=== PATIENT | male | born 1955 | race Caucasian/White ===

== ENCOUNTER 2017-10-20 08:00 | Day surgery (SDC) | payer OTHER ==
[~2017-10-20 08:00] MED LIST: CIPROFLOXACIN 400 MG in D5W 200 ML IVPB; Metronidazole 500 MG in NS 100 ML IVPB
[2017-10-20] MEDS ORDERED: ON Q PUMP ON-Q-PUMP (11:30)
[2017-10-20] MEDS ORDERED: BUPIVACAINE 0.5% ON-Q-PUMP (11:30)
== END 2017-10-20 13:28 | disposition home or self-care (01) ==
LOC: REC 10:54 → SDS 08:00
DX: C20 Malignant neoplasm of rectum (principal); Z53.9 Procedure and treatment not carried out, unspecified reason
CPT/HCPCS: 86850; 86900; 86901

== ENCOUNTER 2017-12-15 12:53 | Inpatient (IN) | payer OTHER ==
[~2017-12-15 12:53] MED LIST changes: +ACETAMINOPHEN 1000 MG/100 ML IVPB; -CIPROFLOXACIN 400 MG in D5W 200 ML IVPB; +GLYCOPYRROLATE 0.4 MG INJ; -Metronidazole 500 MG in NS 100 ML IVPB; +NEOSTIGMINE 3 MG/3 ML SYRINGE; +ROCURONIUM 50 MG INJ
[2017-12-15] MEDS: CIPROFLOXACIN 400MG/D5W 200 ML IVPB (14:00)
[2017-12-15] MEDS: SOD CHLORIDE 0.9% 1,000 ML IV (14:00)
[2017-12-15] MEDS: metroNIDAZOLE 500 MG/NS (PMX) 100 ML IVPB (14:00)
[2017-12-15] MEDS: LACTATED RINGER'S 1,000 ML IV (14:00)
[2017-12-15] MEDS ORDERED: FENTAnyl 50 MCG/ML VIAL (15:25)
[2017-12-15] MEDS ORDERED: ROPIVACAINE 0.5 % 30 ML VIAL (15:32)
[2017-12-15] MEDS ORDERED: PROPOFOL 20 ML (16:02)
[2017-12-15] MEDS ORDERED: ROCURONIUM 50 MG INJ (16:02)
[2017-12-15] MEDS ORDERED: SUCCINYLCHOLINE CHLORIDE 100 MG/5 ML SYG IV (16:02)
[2017-12-15] MEDS ORDERED: metroNIDAZOLE 500 MG/NS (PMX) 100 ML IVPB (16:02)
[2017-12-15] MEDS ORDERED: CIPROFLOXACIN 400MG/D5W 200 ML (16:02)
[2017-12-15] MEDS ORDERED: LIDOCAINE 100 MG SYRINGE (16:02)
[2017-12-15 20:14] LABS: IMMEDIATE SPIN CROSSMATCH 1 2
[2017-12-15] MEDS: METHYLENE BLUE 1% 10 ML INJ (20:18)
[2017-12-15 21:46] LABS: ADD MAN DIFF? NO
[2017-12-15] MEDS ORDERED: FUROSEMIDE 20 MG INJ (22:09)
[2017-12-15] MEDS ORDERED: ONDANSETRON 4 MG INJ (22:54)
[2017-12-15] MEDS: BUPIVACAINE 0.25% (MPF) 30 ML INJ (23:00)
[2017-12-15] MEDS: LIDOCAINE 1%/EPI 30 ML INJ (23:00)
[2017-12-15] MEDS ORDERED: morphine 1 MG/ML 30 ML (PCA) IV (23:30)
[2017-12-15] MEDS ORDERED: NALOXONE (0.4 MG/ML) INJ IV ×2 (23:30)
[2017-12-15] MEDS ORDERED: ONDANSETRON 4 MG INJ IV (23:30)
[2017-12-16 00:23] LABS: WHITE BLOOD COUNT 12.5 10^3/ul (4.8-10.8)
[2017-12-16 00:23] LABS: BASOPHILS % 0.2 % (0.0-2.0); EOSINOPHILS % 0.1 % (0.0-7.0); HEMATOCRIT 38.3 % (42.0-52.0); HEMOGLOBIN 12.7 g/dl (14.0-18.0); LYMPHOCYTES # 0.7 10^3/ul (0.8-2.9); LYMPHOCYTES % 5.7 % (15.0-51.0); MEAN CORPUSCULAR HEMOGLOBIN 29.1 pg (29.0-33.0); MEAN CORPUSCULAR HGB CONC 33.2 g/dl (32.0-37.0); MEAN CORPUSCULAR VOLUME 87.6 fl (82.0-101.0); MEAN PLATELET VOLUME 9.4 fl (7.4-10.4); MONOCYTE # 0.8 10^3/ul (0.3-0.9); MONOCYTES % 6.7 % (0.0-11.0); NEUTROPHIL # 10.9 10^3/ul (1.6-7.5); PLATELET COUNT 173 10^3/UL (140-415); RED BLOOD COUNT 4.37 10^6/ul (4.70-6.10); RED CELL DISTRIBUTION WIDTH 13.8 % (11.5-14.5)
[2017-12-16] MEDS: ACETAMINOPHEN 1000MG/100ML IV 100 ML IVPB ×4 (00:35→17:31)
[2017-12-16] MEDS: metroNIDAZOLE 500 MG/NS (PMX) 100 ML IVPB ×3 (00:38→15:00)
[2017-12-16 00:42] LABS: ALANINE AMINOTRANSFERASE 29 IU/L (13-69); ALBUMIN 2.8 g/dl (3.3-4.9); ALBUMIN/GLOBULIN RATIO 1.03; ALKALINE PHOSPHATASE 76 IU/L (42-121); ANION GAP 13 (8-16); ASPARTATE AMINO TRANSFERASE 21 IU/L (15-46); BILIRUBIN,INDIRECT 1.3 mg/dl (0-1.1); BILIRUBIN,TOTAL 1.9 mg/dl (0.2-1.3); BLOOD UREA NITROGEN 9 mg/dl (7-20); CARBON DIOXIDE 24 mmol/L (21-31); CHLORIDE 107 mmol/L (97-110); CREATININE 0.67 mg/dl (0.61-1.24); GLUCOSE 187 mg/dl (70-220); POTASSIUM 3.9 mmol/L (3.5-5.1); SODIUM 140 mmol/L (135-144); TOTAL PROTEIN 5.5 g/dl (6.1-8.1)
[2017-12-16] MEDS: HYDROmorphONE 0.2 MG/ML PCA IV (01:05)
[2017-12-16] MEDS: LACTATED RINGER'S 1,000 ML IV ×3 (01:14→18:10)
[2017-12-16] MEDS: CIPROFLOXACIN 400MG/D5W 200 ML IVPB ×3 (01:28→20:36)
[2017-12-16 05:07] LABS: ADD MAN DIFF? NO
[2017-12-16 05:11] LABS: WHITE BLOOD COUNT 8.6 10^3/ul (4.8-10.8)
[2017-12-16 05:11] LABS: ABNORMAL IP MESSAGE 1; BASOPHILS % 0.1 % (0.0-2.0); HEMATOCRIT 28.2 % (42.0-52.0); HEMOGLOBIN 9.4 g/dl (14.0-18.0); LYMPHOCYTES # 0.2 10^3/ul (0.8-2.9); LYMPHOCYTES % 2.3 % (15.0-51.0); MEAN CORPUSCULAR HEMOGLOBIN 28.6 pg (29.0-33.0); MEAN CORPUSCULAR HGB CONC 33.3 g/dl (32.0-37.0); MEAN CORPUSCULAR VOLUME 85.7 fl (82.0-101.0); MEAN PLATELET VOLUME 9.6 fl (7.4-10.4); MONOCYTE # 0.7 10^3/ul (0.3-0.9); MONOCYTES % 7.7 % (0.0-11.0); NEUTROPHIL # 7.7 10^3/ul (1.6-7.5); NEUTROPHILS % 89.6 % (39.0-77.0); PLATELET COUNT 132 10^3/UL (140-415); POSITIVE DIFF @See below; RED BLOOD COUNT 3.29 10^6/ul (4.70-6.10)
[2017-12-16 05:25] LABS: ANION GAP 9 (8-16); BLOOD UREA NITROGEN 10 mg/dl (7-20); CALCIUM 7.4 mg/dl (8.4-10.2); CARBON DIOXIDE 28 mmol/L (21-31); CHLORIDE 107 mmol/L (97-110); CREATININE 0.69 mg/dl (0.61-1.24); GLUCOSE 208 mg/dl (70-220); POTASSIUM 4.4 mmol/L (3.5-5.1); SODIUM 140 mmol/L (135-144)
[2017-12-16] MEDS: PANTOPRAZOLE 40 MG INJ IV (05:28)
[2017-12-16 11:45] LABS: HEMOGLOBIN A1C 5.2 % (0-5.9)
[2017-12-16] MEDS: SOD CHLORIDE 0.9% 1,000 ML IV (14:00)
[2017-12-16 15:52] LABS: ADD MAN DIFF? NO
[2017-12-16 15:54] LABS: WHITE BLOOD COUNT 10.8 10^3/ul (4.8-10.8)
[2017-12-16 15:54] LABS: ABNORMAL IP MESSAGE 1; BASOPHILS % 0.1 % (0.0-2.0); EOSINOPHILS % 0.1 % (0.0-7.0); HEMATOCRIT 27.8 % (42.0-52.0); HEMOGLOBIN 9.5 g/dl (14.0-18.0); LYMPHOCYTES # 0.3 10^3/ul (0.8-2.9); LYMPHOCYTES % 2.5 % (15.0-51.0); MEAN CORPUSCULAR HEMOGLOBIN 28.9 pg (29.0-33.0); MEAN CORPUSCULAR HGB CONC 34.2 g/dl (32.0-37.0); MEAN CORPUSCULAR VOLUME 84.5 fl (82.0-101.0); MEAN PLATELET VOLUME 9.3 fl (7.4-10.4); MONOCYTE # 0.8 10^3/ul (0.3-0.9); MONOCYTES % 7.3 % (0.0-11.0); NEUTROPHIL # 9.7 10^3/ul (1.6-7.5); NEUTROPHILS % 89.5 % (39.0-77.0); PLATELET COUNT 149 10^3/UL (140-415); POSITIVE DIFF @See below; RED BLOOD COUNT 3.29 10^6/ul (4.70-6.10); RED CELL DISTRIBUTION WIDTH 14.3 % (11.5-14.5)
[2017-12-17] MEDS: LACTATED RINGER'S 1,000 ML IV
[2017-12-17] MEDS: ACETAMINOPHEN 1000MG/100ML IV 100 ML IVPB ×2 (00:05→05:49)
[2017-12-17 05:13] LABS: ADD MAN DIFF? NO
[2017-12-17 05:21] LABS: ABNORMAL IP MESSAGE 1; BASOPHILS % 0.1 % (0.0-2.0); HEMOGLOBIN 8.5 g/dl (14.0-18.0); LYMPHOCYTES # 0.4 10^3/ul (0.8-2.9); LYMPHOCYTES % 3.2 % (15.0-51.0); MEAN CORPUSCULAR HEMOGLOBIN 29.2 pg (29.0-33.0); MEAN CORPUSCULAR VOLUME 85.9 fl (82.0-101.0); MEAN PLATELET VOLUME 9.6 fl (7.4-10.4); MONOCYTE # 0.8 10^3/ul (0.3-0.9); MONOCYTES % 6.9 % (0.0-11.0); NEUTROPHIL # 9.9 10^3/ul (1.6-7.5); NEUTROPHILS % 89.4 % (39.0-77.0); PLATELET COUNT 135 10^3/UL (140-415); POSITIVE DIFF @See below; RED BLOOD COUNT 2.91 10^6/ul (4.70-6.10); RED CELL DISTRIBUTION WIDTH 14.6 % (11.5-14.5)
[2017-12-17 05:21] LABS: WHITE BLOOD COUNT 11.1 10^3/ul (4.8-10.8)
[2017-12-17 05:46] LABS: ANION GAP 9 (8-16); BLOOD UREA NITROGEN 12 mg/dl (7-20); CALCIUM 7.8 mg/dl (8.4-10.2); CARBON DIOXIDE 27 mmol/L (21-31); CHLORIDE 103 mmol/L (97-110); CREATININE 0.79 mg/dl (0.61-1.24); GLUCOSE 122 mg/dl (70-220); POTASSIUM 4.1 mmol/L (3.5-5.1); SODIUM 135 mmol/L (135-144)
[2017-12-17] MEDS: CIPROFLOXACIN 400MG/D5W 200 ML IVPB (07:31)
[2017-12-17] MEDS: metroNIDAZOLE 500 MG/NS (PMX) 100 ML IVPB ×3 (07:31→15:30)
[2017-12-17] MEDS ORDERED: ACETAMINOPHEN 325 MG TAB PO (09:30)
[2017-12-17] MEDS ORDERED: HYDROmorphONE 0.5 MG/0.5 ML SYG IV (09:30)
[2017-12-17] MEDS: HYDROCODONE/APAP (5/325) TAB PO ×2 (11:39→18:00)
[2017-12-17] MEDS: SOD CHLORIDE 0.9% 1,000 ML IV (14:00)
[2017-12-17 16:14] LABS: ADD MAN DIFF? NO
[2017-12-17 16:16] LABS: WHITE BLOOD COUNT 13.1 10^3/ul (4.8-10.8)
[2017-12-17 16:16] LABS: ABNORMAL IP MESSAGE 1; BASOPHILS % 0.2 % (0.0-2.0); EOSINOPHILS % 0.1 % (0.0-7.0); HEMOGLOBIN 8.4 g/dl (14.0-18.0); LYMPHOCYTES # 0.5 10^3/ul (0.8-2.9); LYMPHOCYTES % 3.8 % (15.0-51.0); MEAN CORPUSCULAR HEMOGLOBIN 29.3 pg (29.0-33.0); MEAN CORPUSCULAR HGB CONC 33.6 g/dl (32.0-37.0); MEAN CORPUSCULAR VOLUME 87.1 fl (82.0-101.0); MEAN PLATELET VOLUME 9.7 fl (7.4-10.4); MONOCYTE # 0.8 10^3/ul (0.3-0.9); MONOCYTES % 5.9 % (0.0-11.0); NEUTROPHIL # 11.7 10^3/ul (1.6-7.5); NEUTROPHILS % 89.2 % (39.0-77.0); PLATELET COUNT 134 10^3/UL (140-415); POSITIVE DIFF @See below; RED BLOOD COUNT 2.87 10^6/ul (4.70-6.10); RED CELL DISTRIBUTION WIDTH 14.7 % (11.5-14.5)
[2017-12-17] MEDS: ONDANSETRON 4 MG INJ IV (16:37)
[2017-12-17] MEDS: CIPROFLOXACIN 500 MG TAB PO (17:59)
[2017-12-17] MEDS: metroNIDAZOLE 500 MG TAB PO (21:41)
[2017-12-18] MEDS: HYDROCODONE/APAP (5/325) TAB PO (00:28)
[2017-12-18] MEDS: METOCLOPRAMIDE 10 MG INJ IV (04:32)
[2017-12-18 04:57] LABS: ADD MAN DIFF? NO
[2017-12-18 05:02] LABS: ABNORMAL IP MESSAGE 1; BASOPHILS % 0.1 % (0.0-2.0); EOSINOPHILS % 0.3 % (0.0-7.0); HEMATOCRIT 22.7 % (42.0-52.0); HEMOGLOBIN 7.7 g/dl (14.0-18.0); LYMPHOCYTES # 0.5 10^3/ul (0.8-2.9); LYMPHOCYTES % 4.4 % (15.0-51.0); MEAN CORPUSCULAR HEMOGLOBIN 28.9 pg (29.0-33.0); MEAN CORPUSCULAR HGB CONC 33.9 g/dl (32.0-37.0); MEAN CORPUSCULAR VOLUME 85.3 fl (82.0-101.0); MEAN PLATELET VOLUME 9.7 fl (7.4-10.4); MONOCYTE # 0.7 10^3/ul (0.3-0.9); MONOCYTES % 6.6 % (0.0-11.0); NEUTROPHIL # 9.7 10^3/ul (1.6-7.5); NEUTROPHILS % 87.9 % (39.0-77.0); PLATELET COUNT 145 10^3/UL (140-415); POSITIVE DIFF @See below; RED BLOOD COUNT 2.66 10^6/ul (4.70-6.10); RED CELL DISTRIBUTION WIDTH 14.7 % (11.5-14.5)
[2017-12-18] MEDS: metroNIDAZOLE 500 MG TAB PO ×3 (05:22→21:30)
[2017-12-18] MEDS: CIPROFLOXACIN 500 MG TAB PO ×2 (05:22→17:30)
[2017-12-18 05:25] LABS: ANION GAP 6 (8-16); BLOOD UREA NITROGEN 9 mg/dl (7-20); CALCIUM 7.7 mg/dl (8.4-10.2); CARBON DIOXIDE 30 mmol/L (21-31); CHLORIDE 99 mmol/L (97-110); CREATININE 0.73 mg/dl (0.61-1.24); GLUCOSE 118 mg/dl (70-220); POTASSIUM 4.1 mmol/L (3.5-5.1); SODIUM 131 mmol/L (135-144)
[2017-12-18 13:12] LABS: HEMATOCRIT 22.8 % (42.0-52.0); HEMOGLOBIN 7.8 g/dl (14.0-18.0)
[2017-12-18 18:23] LABS: HEMATOCRIT 23.4 % (42.0-52.0); HEMOGLOBIN 7.9 g/dl (14.0-18.0)
[2017-12-19 05:35] LABS: ADD MAN DIFF? NO
[2017-12-19 05:42] LABS: ABNORMAL IP MESSAGE 1; BASOPHILS % 0.2 % (0.0-2.0); EOSINOPHILS # 0.1 10^3/ul (0.0-0.5); EOSINOPHILS % 1.3 % (0.0-7.0); HEMATOCRIT 21.7 % (42.0-52.0); HEMOGLOBIN 7.5 g/dl (14.0-18.0); LYMPHOCYTES # 0.4 10^3/ul (0.8-2.9); MEAN CORPUSCULAR HEMOGLOBIN 29.2 pg (29.0-33.0); MEAN CORPUSCULAR HGB CONC 34.6 g/dl (32.0-37.0); MEAN CORPUSCULAR VOLUME 84.4 fl (82.0-101.0); MEAN PLATELET VOLUME 9.6 fl (7.4-10.4); MONOCYTE # 0.5 10^3/ul (0.3-0.9); NEUTROPHIL # 5.2 10^3/ul (1.6-7.5); PLATELET COUNT 144 10^3/UL (140-415); POSITIVE DIFF @See below; RED BLOOD COUNT 2.57 10^6/ul (4.70-6.10); RED CELL DISTRIBUTION WIDTH 14.7 % (11.5-14.5)
[2017-12-19 05:42] LABS: WHITE BLOOD COUNT 6.2 10^3/ul (4.8-10.8)
[2017-12-19] MEDS: CIPROFLOXACIN 500 MG TAB PO ×2 (05:59→18:21)
[2017-12-19] MEDS: metroNIDAZOLE 500 MG TAB PO ×3 (05:59→21:05)
[2017-12-19 06:12] LABS: ANION GAP 5 (8-16); BLOOD UREA NITROGEN 10 mg/dl (7-20); CALCIUM 7.9 mg/dl (8.4-10.2); CARBON DIOXIDE 32 mmol/L (21-31); CHLORIDE 99 mmol/L (97-110); CREATININE 0.78 mg/dl (0.61-1.24); GLUCOSE 110 mg/dl (70-220); PHOSPHORUS 2.5 mg/dl (2.5-4.9); POTASSIUM 4.3 mmol/L (3.5-5.1); SODIUM 132 mmol/L (135-144)
[2017-12-20] MEDS: metroNIDAZOLE 500 MG TAB PO ×3 (05:11→21:36)
[2017-12-20] MEDS: CIPROFLOXACIN 500 MG TAB PO ×2 (05:11→18:12)
[2017-12-20 06:10] LABS: ADD MAN DIFF? NO
[2017-12-20 06:23] LABS: ABNORMAL IP MESSAGE 1; BASOPHILS % 0.2 % (0.0-2.0); EOSINOPHILS # 0.1 10^3/ul (0.0-0.5); EOSINOPHILS % 3.2 % (0.0-7.0); HEMOGLOBIN 7.4 g/dl (14.0-18.0); LYMPHOCYTES # 0.3 10^3/ul (0.8-2.9); LYMPHOCYTES % 6.6 % (15.0-51.0); MEAN CORPUSCULAR HGB CONC 33.6 g/dl (32.0-37.0); MEAN CORPUSCULAR VOLUME 86.3 fl (82.0-101.0); MEAN PLATELET VOLUME 9.2 fl (7.4-10.4); MONOCYTE # 0.6 10^3/ul (0.3-0.9); MONOCYTES % 14.6 % (0.0-11.0); NEUTROPHILS % 74.2 % (39.0-77.0); PLATELET COUNT 168 10^3/UL (140-415); POSITIVE DIFF @See below; RED BLOOD COUNT 2.55 10^6/ul (4.70-6.10); RED CELL DISTRIBUTION WIDTH 14.5 % (11.5-14.5)
[2017-12-20 06:23] LABS: WHITE BLOOD COUNT 4.1 10^3/ul (4.8-10.8)
[2017-12-20 06:36] LABS: ANION GAP 7 (8-16); CARBON DIOXIDE 30 mmol/L (21-31); CHLORIDE 97 mmol/L (97-110); POTASSIUM 3.6 mmol/L (3.5-5.1); SODIUM 130 mmol/L (135-144)
[2017-12-20 14:30] LABS: OSMOLALITY 270 mOsm/kg (280-295)
[2017-12-20 15:11] LABS: SODIUM,URINE RANDOM 81 mmol/L (30-90)
[2017-12-20 15:52] LABS: OSMOLALITY,URINE 429 mOsm/kg (250-1200)
[2017-12-21] MEDS: CEPASTAT LOZENGE MT ×3 (01:10→20:43)
[2017-12-21] MEDS: HYDROCODONE/APAP (5/325) TAB PO (01:11)
[2017-12-21 05:14] LABS: ANION GAP 8 (8-16); BLOOD UREA NITROGEN 9 mg/dl (7-20); CARBON DIOXIDE 30 mmol/L (21-31); CHLORIDE 99 mmol/L (97-110); CREATININE 0.67 mg/dl (0.61-1.24); GLUCOSE 110 mg/dl (70-220); MAGNESIUM 1.9 mg/dl (1.7-2.5); PHOSPHORUS 3.2 mg/dl (2.5-4.9); POTASSIUM 3.9 mmol/L (3.5-5.1); SODIUM 133 mmol/L (135-144)
[2017-12-21] MEDS: metroNIDAZOLE 500 MG TAB PO (06:13)
[2017-12-21] MEDS: CIPROFLOXACIN 500 MG TAB PO (06:13)
[2017-12-21] MEDS: MAGNESIUM HYDROXIDE 30ML CUP PO (11:56)
[2017-12-21] MEDS: ONDANSETRON 4 MG INJ IV (20:44)
[2017-12-22] MEDS: HYDROCODONE/APAP (5/325) TAB PO (03:17)
[2017-12-22 05:46] LABS: ADD MAN DIFF? NO
[2017-12-22 06:05] LABS: ABNORMAL IP MESSAGE 1; BASOPHILS % 0.3 % (0.0-2.0); EOSINOPHILS # 0.2 10^3/ul (0.0-0.5); EOSINOPHILS % 3.8 % (0.0-7.0); HEMATOCRIT 23.2 % (42.0-52.0); HEMOGLOBIN 7.8 g/dl (14.0-18.0); LYMPHOCYTES # 0.4 10^3/ul (0.8-2.9); LYMPHOCYTES % 6.8 % (15.0-51.0); MEAN CORPUSCULAR HEMOGLOBIN 28.9 pg (29.0-33.0); MEAN CORPUSCULAR HGB CONC 33.6 g/dl (32.0-37.0); MEAN CORPUSCULAR VOLUME 85.9 fl (82.0-101.0); MEAN PLATELET VOLUME 9.1 fl (7.4-10.4); MONOCYTE # 0.6 10^3/ul (0.3-0.9); MONOCYTES % 10.2 % (0.0-11.0); NEUTROPHIL # 4.5 10^3/ul (1.6-7.5); NEUTROPHILS % 77.5 % (39.0-77.0); PLATELET COUNT 241 10^3/UL (140-415); POSITIVE DIFF @See below; RED CELL DISTRIBUTION WIDTH 14.4 % (11.5-14.5)
[2017-12-22 06:05] LABS: WHITE BLOOD COUNT 5.8 10^3/ul (4.8-10.8)
== END 2017-12-22 18:40 | disposition home health service (06) | DRG 330 ==
LOC: REC 12:53 → MS1 12-18 11:17 → ICU 23:12
PROC: 0D1N0Z4 Bypass Sigmoid Colon to Cutaneous, Open Approach (ICD-10-PCS; principal; 2017-12-15 15:21)
PROC: 0DTP0ZZ Resection of Rectum, Open Approach (ICD-10-PCS; 2017-12-15 15:21)
PROC: 0DBQ0ZZ Excision of Anus, Open Approach (ICD-10-PCS; 2017-12-15 15:21)
PROC: 0TQD0ZZ Repair Urethra, Open Approach (ICD-10-PCS; 2017-12-15 15:21)
PROC: 0T9B00Z Drainage of Bladder with Drainage Device, Open Approach (ICD-10-PCS; 2017-12-15 15:21)
PROC: 30233N1 Transfusion of Nonautologous Red Blood Cells into Peripheral Vein, Percutaneous Approach (ICD-10-PCS; 2017-12-15 15:21)
DX: C20 Malignant neoplasm of rectum (principal); S37.30XA Unspecified injury of urethra, initial encounter; D62 Acute posthemorrhagic anemia; Y83.8 Other surgical procedures as the cause of abnormal reaction of the patient, or of later complication, without mention of misadventure at the time of the procedure; Y92.234 Operating room of hospital as the place of occurrence of the external cause
CPT/HCPCS: 36430; 74018; 80048; 80051; 80053; 82533; 83036; 83735; 83930; 83935; 84100; 84300; 84443; 85014; 85018; 85025; 86644; 86885; 86900; 86901; 86920; 87081; 88307; 97110; 97116; 97163; 97530

== ENCOUNTER → 2018-01-26 | Outpatient (CLI) | payer OTHER ==
[~2018-01-26] MED LIST changes: -ACETAMINOPHEN 1000 MG/100 ML IVPB; +DIATRIZOATE MEGLUMINE 300 ML BTL UR; -GLYCOPYRROLATE 0.4 MG INJ; -NEOSTIGMINE 3 MG/3 ML SYRINGE; -ROCURONIUM 50 MG INJ
== END | disposition home or self-care (01) ==
LOC: RAD 08:12
DX: S37.30XA Unspecified injury of urethra, initial encounter (principal); X58.XXXA Exposure to other specified factors, initial encounter
CPT/HCPCS: 74455